=== PATIENT | male | born 1955 | race African-American/Black ===

== ENCOUNTER 2020-10-04 08:52 | Inpatient (IN) ==
[2020-10-04] MEDS ORDERED: CEFUROXIME INJ 1,500 MG in SYRINGE 1 EACH IV ONE (08:57)
[2020-10-04] MEDS ORDERED: DEXTROSE 50% 25 GM/50 ML VIAL IV PRN ×2 (08:57)
[2020-10-04] MEDS ORDERED: GLUCAGON 1 MG VIAL IM PRN ×2 (08:57)
[2020-10-04] MEDS ORDERED: CHLORHEXIDINE 0.12% ORAL RINSE 60 ML BOTTLE SWISH/SPIT SCH (09:00)
[2020-10-04] MEDS ORDERED: CHLORHEXIDINE 4% SOLN 118 ML BOTTLE TOP SCH (09:00)
[2020-10-04 09:30] LABS: Basophils % 0.4 % (0.0-0.8); Eosinophils # 0.2 10*3/uL (0.0-0.87); Eosinophils % 1.8 % (0.00-10.9); Hematocrit 41.9 VOL% (42.0-52.0); Hemoglobin 14.1 GM/DL (14.0-18.0); Immature Granulocytes % 0.4 %; Immature Granulocytes Absolute 0.03 #; Lymphocytes # 2.7 10*3/uL (1.4-4.0); Lymphocytes % 32.1 % (21.2-54.2); Mean Corpuscular HGB Conc 33.7 GM/DL (32-36); Mean Corpuscular Volume 85.7 FL (87-102); Mean Platelet Volume 9.3 FL (9.6-12.0); Neutrophils % 58.3 % (38.7-73.9); Platelet Count 293 T/CUMM (130-400); Red Blood Count 4.89 MC/CUMM (3.8-5.5); Red Cell Distribution Width 12.5 % (9.3-17.3); White Blood Count 8.5 T/CUMM (4-12)
[2020-10-04 09:46] LABS: Alanine Aminotransferase 61 U/L (16-61); Albumin 3.9 G/DL (3.4-5.0); Alkaline Phosphatase 55 U/L (45-117); Aspartate Amino Transferase 29 U/L (0-37); Bilirubin,Total < 0.39 MG/DL (0.2-1.0); Blood Urea Nitrogen 23 MG/DL (7-18); Calcium 9.7 MG/DL (8.5-10.1); Estimated Glom Filtration Rate 90 ML/MIN; Glucose 233 MG/DL (74-106); Total Protein 8.5 G/DL (6.4-8.3)
[2020-10-04] MEDS: SODIUM CHLORIDE 0.9% 1,000 ML IV SCH (10:27)
[2020-10-04 10:36] LABS: ABG HCO3 25.2 MMOL/L (20-26); ABG PCO2 44.6 MM HG (35-48); ABG PH 7.381 (7.35-7.45); ABG PO2 86.9 MM HG (80-95)
[2020-10-04] MEDS ORDERED: hydrALAZINE 20 MG/1 ML VIAL IV PRN (13:22)
[2020-10-04] MEDS: INSULIN REGULAR 100 UNIT/ML SUBCUT SCH ×3 (13:27→20:24)
[2020-10-04] MEDS ORDERED: CLORAZEPATE 3.75 MG TABLET PO PRN (14:21)
[2020-10-04] MEDS ORDERED: NITROGLYCERIN SL 0.4 MG TABLET SL PRN (14:21)
[2020-10-04] MEDS ORDERED: MORPHINE 4 MG/1 ML VIAL IV PRN (14:22)
[2020-10-04] MEDS ORDERED: ZALEPLON 5 MG CAPSULE PO PRN (14:22)
[2020-10-04] MEDS ORDERED: CHLORHEXIDINE 0.12% ORAL RINSE 60 ML BOTTLE SWISH/SPIT ONE (15:00)
[2020-10-04] MEDS: CHLORHEXIDINE 4% SOLN 118 ML BOTTLE TOP SCH ×2 (15:33→20:25)
[2020-10-04] MEDS: CHLORHEXIDINE 0.12% ORAL RINSE 60 ML BOTTLE SWISH/SPIT SCH (20:24)
[2020-10-04] MEDS: carvediloL 3.125 MG TABLET PO SCH (20:24)
[2020-10-04] MEDS ORDERED: GABAPENTIN 300 MG CAPSULE PO SCH (21:00)
[2020-10-05] MEDS: CHLORHEXIDINE 4% SOLN 118 ML BOTTLE TOP SCH ×2 (04:17→08:26)
[2020-10-05] MEDS ORDERED: VANCOMYCIN 500 MG VIAL ONE (04:21)
[2020-10-05] MEDS ORDERED: PAPAVERINE 60 MG/2 ML VIAL ONE (04:21)
[2020-10-05] MEDS ORDERED: VANCOMYCIN 1,000 MG VIAL ONE (04:21)
[2020-10-05] MEDS ORDERED: FAMOTIDINE 20 MG TABLET PO ONE (05:00)
[2020-10-05] MEDS ORDERED: DIAZEPAM 5 MG TABLET PO ONE (05:00)
[2020-10-05] MEDS ORDERED: LIDOCAINE 2% 5 ML VIAL ONE ×2 (05:49→09:55)
[2020-10-05] MEDS ORDERED: CALCIUM CHLORIDE 1,000 MG/10 ML VIAL IV ONE ×2 (05:51→10:10)
[2020-10-05] MEDS ORDERED: VECURONIUM 10 MG VIAL IV ONE ×4 (05:52)
[2020-10-05] MEDS ORDERED: SUFentanil 250 MCG/5 ML AMP ONE ×3 (05:53→07:46)
[2020-10-05] MEDS ORDERED: MIDAZOLAM 10 MG/2 ML VIAL ONE ×5 (05:53→07:46)
[2020-10-05] MEDS ORDERED: ETOMIDATE 40 MG/20 ML VIAL IV ONE (05:54)
[2020-10-05] MEDS ORDERED: AMINOCAPROIC ACID 5,000 MG/20 ML VIAL ONE ×4 (05:55)
[2020-10-05] MEDS ORDERED: SODIUM CHLORIDE 0.9% 1,000 ML IV ONE (05:59)
[2020-10-05] MEDS ORDERED: SODIUM CHLORIDE 0.9% 250 ML IV ONE (05:59)
[2020-10-05] MEDS ORDERED: LACTATED RINGERS 1,000 ML IV ONE (05:59)
[2020-10-05] MEDS ORDERED: CEFUROXIME INJ 1,500 MG in SYRINGE 1 EACH IV ONE (07:00)
[2020-10-05 07:28] LABS: ABG Base Excess 1.1 MMOL/L (-2.5-2.5); ABG HCO3 25.4 MMOL/L (20-26); ABG Oxygen Saturation 99.4 % (95-100); ABG PCO2 35.8 MM HG (35-48); ABG PH 7.447 (7.35-7.45); ABG TCO2 21.6 MMOL/L (23-27); Glucose Heart Surgery 161 MG/DL (74-106); Hematocrit Heart Surgery 38.7 PERCENT (42-52); Hemoglobin Heart Surgery 12.6 G/DL (14.0-18.0); Ionized Calcium Arterial 1.21 MMOL/L (1.21-1.46); PCO2 Patient Temp Arterial 35.8 MMHG; PH Patient Temp Arterial 7.447; Patient Temperature 37 CELCIUS; Potassium Heart/CVR 4.2 MMOL/L (3.5-5.1); Sodium Heart/CVR 140 MMOL/L (135-145)
[2020-10-05] MEDS ORDERED: NITROPRUSSIDE 50 MG/2 ML VIAL ONE (07:50)
[2020-10-05] MEDS ORDERED: PHENYLEPHRINE DRIP 40 MG/250 ML PREMIX IV ONE (07:51)
[2020-10-05] MEDS ORDERED: ALBUMIN 5% 12.5 GM/250 ML VIAL IV ONE (07:51)
[2020-10-05] MEDS ORDERED: POTASSIUM CHLORIDE RIDER 100 ML IV ONE (07:51)
[2020-10-05] MEDS ORDERED: CALCIUM CHLORIDE 1,000 MG/10 ML SYRINGE IV ONE (07:51)
[2020-10-05 08:07] LABS: Bacteria,Urine Occasional /HPF (Few); Bilirubin,Urine Negative (Negative); Blood, Urine Moderate mg/dL (Negative); Glucose,Urine (UA) Negative (Negative); Hyaline Casts,Urine 1 /LPF (0-3); Ketones,Urine Negative (Negative); Mucus,Urine Occasional /LPF (Occasional); Nitrite,Urine Negative (Negative); Protein,Urine 100 MG/DL; RBC,Urine 16 /HPF (0-4); Squamous Epithelial Cell,Urine Occasional /HPF (0-10); Urine Appearance Slightly Hazy (Clear); Urine Color Yellow (Yellow); Urine Specific Gravity 1.014 (1.001-1.035); Urine Urobilinogen < 2.0 EU/DL (0.2-1.0); WBC,Urine 10 /HPF (0-6)
[2020-10-05] MEDS: SODIUM CHLORIDE 0.9% 1,000 ML IV SCH (08:26)
[2020-10-05] MEDS: carvediloL 3.125 MG TABLET PO SCH (08:26)
[2020-10-05] MEDS: CHLORHEXIDINE 0.12% ORAL RINSE 60 ML BOTTLE SWISH/SPIT SCH (08:26)
[2020-10-05] MEDS: INSULIN REGULAR 100 UNIT/ML SUBCUT SCH (08:26)
[2020-10-05 08:52] LABS: Hematocrit Heart Surgery 28.2 PERCENT (42-52); Hemoglobin Heart Surgery 9.1 G/DL (14.0-18.0); PCO2 Patient Temp Venous 40.4 MM HG; PH Patient Temp Venous 7.427; Potassium Heart/CVR 4.8 MMOL/L (3.5-5.1); VBG Base Excess 2.2 MEQ/L (0-4); VBG Oxygen Saturation 75.6 %; VBG PCO2 40.4 MMHG (41-51); VBG PH 7.427
[2020-10-05] MEDS ORDERED: PHENYLEPHRINE DRIP 20 MG/250 ML PREMIX IV ONE (09:13)
[2020-10-05] MEDS ORDERED: NITROGLYCERIN DRIP 50 MG/250 ML BOTTLE IV ONE (09:13)
[2020-10-05] MEDS ORDERED: HEPARIN/NACL 0.9% 2 UNITS/ML 500 ML IV ONE (09:13)
[2020-10-05 09:36] LABS: Hematocrit Heart Surgery 31.3 PERCENT (42-52); Hemoglobin Heart Surgery 10.1 G/DL (14.0-18.0); PCO2 Patient Temp Venous 38.8 MM HG; PH Patient Temp Venous 7.433; PO2 Patient Temp Venous 37.1 MM HG; Potassium Heart/CVR 5.5 MMOL/L (3.5-5.1); VBG Base Excess 1.7 MEQ/L (0-4); VBG HCO3 25.5 MEQ/L (24-28); VBG Oxygen Saturation 69.2 %; VBG PCO2 38.8 MMHG (41-51); VBG PH 7.433; VBG PO2 37.1 MMHG (17-40)
[2020-10-05] MEDS ORDERED: MAGNESIUM SULFATE 5 GM/10 ML VIAL IV ONE (09:55)
[2020-10-05] MEDS ORDERED: DEXTROSE 5% KCL 20 MEQ 20 MEQ/1,000 ML BAG IV ONE (09:55)
[2020-10-05] MEDS ORDERED: methylPREDNISolone SOD SUC 1,000 MG/8 ML VIAL ONE (09:55)
[2020-10-05] MEDS ORDERED: MANNITOL 100 GM/500 ML BAG IV ONE (09:55)
[2020-10-05] MEDS ORDERED: ALBUMIN 25% 25 GM/100 ML VIAL IV ONE (09:55)
[2020-10-05] MEDS ORDERED: PROTAMINE SULFATE 50 MG/5 ML VIAL IV ONE ×4 (09:56→10:45)
[2020-10-05] MEDS ORDERED: PROTAMINE SULFATE 250 MG/25 ML VIAL IV ONE (09:56)
[2020-10-05] MEDS ORDERED: FUROSEMIDE 20 MG/2 ML VIAL ONE (09:56)
[2020-10-05] MEDS ORDERED: SODIUM BICARBONATE 50 MEQ/50 ML VIAL IV ONE (09:56)
[2020-10-05] MEDS ORDERED: HEPARIN 10,000 UNIT/10 ML VIAL ONE (09:56)
[2020-10-05 10:02] LABS: ABG Base Excess 0.3 MMOL/L (-2.5-2.5); ABG HCO3 24.7 MMOL/L (20-26); ABG Oxygen Saturation 99.6 % (95-100); ABG PCO2 37.2 MM HG (35-48); ABG PH 7.426 (7.35-7.45); ABG TCO2 22.1 MMOL/L (23-27); Glucose Heart Surgery 224 MG/DL (74-106); Hematocrit Heart Surgery 31.7 PERCENT (42-52); Hemoglobin Heart Surgery 10.2 G/DL (14.0-18.0); Ionized Calcium Arterial 1.27 MMOL/L (1.21-1.46); PCO2 Patient Temp Arterial 37.2 MMHG; PH Patient Temp Arterial 7.426; Patient Temperature 37 CELCIUS; Potassium Heart/CVR 4.6 MMOL/L (3.5-5.1); Sodium Heart/CVR 135 MMOL/L (135-145)
[2020-10-05] MEDS ORDERED: LACTATED RINGERS 250 ML IV PRN (10:36)
[2020-10-05] MEDS ORDERED: VECURONIUM 10 MG VIAL IV PRN ×2 (10:36)
[2020-10-05] MEDS ORDERED: PHENYLEPHRINE DRIP 40 MG/250 ML PREMIX IV PRN (10:36)
[2020-10-05] MEDS ORDERED: MAGNESIUM SULF RIDER 4 GM in PREMIX 1 EACH IV PRN (10:36)
[2020-10-05] MEDS ORDERED: INSULIN REGULAR 100 UNIT/ML IV ONE (10:36)
[2020-10-05] MEDS ORDERED: MAGNESIUM SULF RIDER 2 GM in PREMIX 1 EACH IV PRN (10:36)
[2020-10-05] MEDS ORDERED: NITROPRUSSIDE 100 MG in DEXTROSE 5% 250 ML IV PRN (10:36)
[2020-10-05] MEDS ORDERED: ONDANSETRON 4 MG/2 ML VIAL IV PRN (10:36)
[2020-10-05] MEDS ORDERED: ACETAMINOPHEN 650 MG SUPP RECTAL PRN (10:36)
[2020-10-05] MEDS ORDERED: CALCIUM CHLORIDE 1,000 MG/10 ML SYRINGE IV PRN (10:36)
[2020-10-05] MEDS ORDERED: MIDAZOLAM 10 MG/2 ML VIAL IV PRN (10:36)
[2020-10-05] MEDS ORDERED: DEXTROSE 50% 25 GM/50 ML VIAL IV PRN ×2 (10:36)
[2020-10-05] MEDS ORDERED: MORPHINE 10 MG/1 ML VIAL IV PRN (10:36)
[2020-10-05] MEDS ORDERED: MIDAZOLAM 2 MG/2 ML VIAL IV PRN (10:36)
[2020-10-05] MEDS ORDERED: CHLORHEXIDINE 4% SOLN 118 ML BOTTLE TOP PRN (10:36)
[2020-10-05] MEDS ORDERED: INSULIN REGULAR 100 UNIT/ML IV PRN (10:36)
[2020-10-05] MEDS: LACTATED RINGERS 1,000 ML IV PRN ×3 (10:50→14:00)
[2020-10-05] MEDS ORDERED: SODIUM CHLORIDE 0.45% 1,000 ML IV SCH ×2 (11:00)
[2020-10-05] MEDS: ALBUMIN 5% 12.5 GM in PREMIX 1 EACH IV PRN ×3 (11:15→15:55)
[2020-10-05 11:19] LABS: ABG HCO3 24.4 MMOL/L (20-26); ABG Oxygen Saturation 99.4 % (95-100); ABG PCO2 31.1 MM HG (35-48); ABG PH 7.474 (7.35-7.45); ABG TCO2 20.5 MMOL/L (23-27); Glucose Heart Surgery 202 MG/DL (74-106); Hematocrit Heart Surgery 33.2 PERCENT (42-52); Hemoglobin Heart Surgery 10.8 G/DL (14.0-18.0); Potassium Heart/CVR 4.2 MMOL/L (3.5-5.1)
[2020-10-05 11:24] LABS: Basophils % 0.2 % (0.0-0.8); Eosinophils # 0.1 10*3/uL (0.0-0.87); Eosinophils % 0.8 % (0.00-10.9); Hematocrit 30.9 VOL% (42.0-52.0); Hemoglobin 10.6 GM/DL (14.0-18.0); Immature Granulocytes % 0.5 %; Immature Granulocytes Absolute 0.06 #; Lymphocytes # 2.3 10*3/uL (1.4-4.0); Lymphocytes % 18.7 % (21.2-54.2); Mean Corpuscular HGB Conc 34.3 GM/DL (32-36); Mean Corpuscular Volume 85.6 FL (87-102); Mean Platelet Volume 9.6 FL (9.6-12.0); Monocytes % 5.9 % (1.7-12.7); Neutrophils % 73.9 % (38.7-73.9); Platelet Count 226 T/CUMM (130-400); Red Blood Count 3.61 MC/CUMM (3.8-5.5); Red Cell Distribution Width 12.4 % (9.3-17.3); White Blood Count 12.1 T/CUMM (4-12)
[2020-10-05] MEDS ORDERED: INSULIN REGULAR DRIP 100 ML IV SCH (11:30)
[2020-10-05 11:35] LABS: INR 1.2; PT Patient Result 12.4 SECS (9.8-11.9); Partial Thromboplastin Time 29.9 SECS (23.9-33.8)
[2020-10-05 11:47] LABS: Albumin 3.1 G/DL (3.4-5.0); Bilirubin,Total 1.4 MG/DL (0.2-1.0); Calcium 9.3 MG/DL (8.5-10.1); Osmolality,Calculated 285.5 MOS/KG (273-304); Total Protein 6.2 G/DL (6.4-8.3)
[2020-10-05 11:49] LABS: CKMB % 5.5 %
[2020-10-05 11:54] LABS: Troponin I 3.3 NG/ML (0.00-0.045)
[2020-10-05 12:12] LABS: ABG Base Excess 0.1 MMOL/L (-2.5-2.5); ABG HCO3 24.5 MMOL/L (20-26); ABG Oxygen Saturation 99.2 % (95-100); ABG PCO2 31.4 MM HG (35-48); ABG PH 7.473 (7.35-7.45); ABG TCO2 20.6 MMOL/L (23-27); Glucose Heart Surgery 205 MG/DL (74-106); Hematocrit Heart Surgery 33.7 PERCENT (42-52); Hemoglobin Heart Surgery 10.9 G/DL (14.0-18.0); Potassium Heart/CVR 3.8 MMOL/L (3.5-5.1)
[2020-10-05] MEDS: POTASSIUM CHLORIDE RIDER 20 MEQ in PREMIX 1 EACH IV PRN ×4 (12:32→18:16)
[2020-10-05] MEDS: POTASSIUM CHLORIDE RIDER 10 MEQ in PREMIX 1 EACH IV PRN ×2 (13:15→17:13)
[2020-10-05 13:58] LABS: ABG Base Excess -0.2 MMOL/L (-2.5-2.5); ABG HCO3 24.3 MMOL/L (20-26); ABG Oxygen Saturation 98.9 % (95-100); ABG PCO2 33.5 MM HG (35-48); ABG PH 7.449 (7.35-7.45); ABG TCO2 20.8 MMOL/L (23-27); Glucose Heart Surgery 170 MG/DL (74-106); Hematocrit Heart Surgery 33.6 PERCENT (42-52); Hemoglobin Heart Surgery 10.9 G/DL (14.0-18.0)
[2020-10-05] MEDS ORDERED: DEXMEDETOMIDINE 400 MCG in SODIUM CHLORIDE 0.9% 96 ML IV PRN (15:29)
[2020-10-05] MEDS ORDERED: MEPERIDINE 50 MG/1 ML VIAL IV PRN (15:29)
[2020-10-05 16:24] LABS: ABG Base Excess -0.4 MMOL/L (-2.5-2.5); ABG HCO3 24.1 MMOL/L (20-26); ABG Oxygen Saturation 98.9 % (95-100); ABG PCO2 33.8 MM HG (35-48); ABG PH 7.443 (7.35-7.45); ABG TCO2 20.8 MMOL/L (23-27); Glucose Heart Surgery 158 MG/DL (74-106); Hematocrit Heart Surgery 33.1 PERCENT (42-52); Hemoglobin Heart Surgery 10.7 G/DL (14.0-18.0); Potassium Heart/CVR 3.9 MMOL/L (3.5-5.1)
[2020-10-05] MEDS: CEFUROXIME INJ 1,500 MG in SYRINGE 1 EACH IV SCH (17:37)
[2020-10-05 18:05] LABS: ABG Base Excess 0.1 MMOL/L (-2.5-2.5); ABG HCO3 22.6 MMOL/L (20-26); ABG Oxygen Saturation 97.8 % (95-100); ABG PCO2 29.4 MM HG (35-48); ABG PH 7.504 (7.35-7.45); ABG PO2 157.1 MM HG (80-95); ABG TCO2 23.5 MMOL/L (23-27); Glucose Heart Surgery 135 MG/DL (74-106)
[2020-10-05] MEDS ORDERED: FUROSEMIDE 40 MG/4 ML VIAL IV PRN (18:20)
[2020-10-05 18:30] LABS: CKMB % 4.5 %
[2020-10-05 18:39] LABS: Troponin I 7.82 NG/ML (0.00-0.045)
[2020-10-05] MEDS: MORPHINE 4 MG/1 ML VIAL IV PRN (19:49)
[2020-10-05 19:57] LABS: ABG Base Excess -0.5 MMOL/L (-2.5-2.5); ABG Oxygen Saturation 98.8 % (95-100); ABG PCO2 35.2 MM HG (35-48); ABG TCO2 21.1 MMOL/L (23-27); Glucose Heart Surgery 131 MG/DL (74-106); Hemoglobin Heart Surgery 10.3 G/DL (14.0-18.0); Potassium Heart/CVR 4.6 MMOL/L (3.5-5.1)
[2020-10-05] MEDS ORDERED: KETOROLAC 30 MG/1 ML VIAL IV ONE (19:57)
[2020-10-05] MEDS ORDERED: CHLORHEXIDINE 0.12% ORAL RINSE 60 ML BOTTLE SWISH/SPIT SCH (21:00)
[2020-10-05 21:07] LABS: ABG Base Excess -1.1 MMOL/L (-2.5-2.5); ABG HCO3 24.6 MMOL/L (20-26); ABG Oxygen Saturation 97.5 % (95-100); ABG PCO2 45.2 MM HG (35-48); ABG PH 7.353 (7.35-7.45); ABG PO2 135.4 MM HG (80-95); Glucose Heart Surgery 121 MG/DL (74-106); Hemoglobin Heart Surgery 10.3 G/DL (14.0-18.0); Potassium Heart/CVR 4.5 MMOL/L (3.5-5.1)
[2020-10-05 22:42] LABS: ABG Base Excess -1.8 MMOL/L (-2.5-2.5); ABG HCO3 22.9 MMOL/L (20-26); ABG Oxygen Saturation 97.8 % (95-100); ABG PH 7.306 (7.35-7.45); Glucose Heart Surgery 116 MG/DL (74-106); Hematocrit Heart Surgery 30.1 PERCENT (42-52); Hemoglobin Heart Surgery 9.7 G/DL (14.0-18.0); Potassium Heart/CVR 4.7 MMOL/L (3.5-5.1)
[2020-10-06 04:26] LABS: Basophils % 0.1 % (0.0-0.8); Hematocrit 28.9 VOL% (42.0-52.0); Hemoglobin 9.9 GM/DL (14.0-18.0); Immature Granulocytes % 0.6 %; Lymphocytes # 1.3 10*3/uL (1.4-4.0); Mean Corpuscular HGB Conc 34.3 GM/DL (32-36); Mean Corpuscular Volume 87.8 FL (87-102); Mean Platelet Volume 9.9 FL (9.6-12.0); Monocytes % 5.6 % (1.7-12.7); Neutrophils % 85.7 % (38.7-73.9); Platelet Count 204 T/CUMM (130-400); Red Blood Count 3.29 MC/CUMM (3.8-5.5); Red Cell Distribution Width 12.6 % (9.3-17.3); White Blood Count 16.5 T/CUMM (4-12)
[2020-10-06 04:27] LABS: ABG HCO3 23.6 MMOL/L (20-26); ABG Oxygen Saturation 98.1 % (95-100); ABG PCO2 49.8 MM HG (35-48); ABG PH 7.318 (7.35-7.45); ABG TCO2 23.6 MMOL/L (23-27); Glucose Heart Surgery 113 MG/DL (74-106); Hematocrit Heart Surgery 29.8 PERCENT (42-52); Hemoglobin Heart Surgery 9.6 G/DL (14.0-18.0); Potassium Heart/CVR 4.9 MMOL/L (3.5-5.1)
[2020-10-06 05:04] LABS: CKMB % 3.5 %
[2020-10-06 05:17] LABS: Troponin I 4.64 NG/ML (0.00-0.045)
[2020-10-06] MEDS: INSULIN REGULAR 100 UNIT/ML SUBCUT SCH ×6 (05:21→20:19)
[2020-10-06] MEDS: MORPHINE 4 MG/1 ML VIAL IV PRN ×2 (05:43→07:45)
[2020-10-06] MEDS: CEFUROXIME INJ 1,500 MG in SYRINGE 1 EACH IV SCH ×2 (05:55→17:48)
[2020-10-06 06:29] LABS: Albumin 3.5 G/DL (3.4-5.0); Bilirubin,Direct 0.12 MG/DL (0.0-0.20); Bilirubin,Total 0.8 MG/DL (0.2-1.0); Calcium 8.7 MG/DL (8.5-10.1); Osmolality,Calculated 283.4 MOS/KG (273-304); Total Protein 6.6 G/DL (6.4-8.3)
[2020-10-06] MEDS ORDERED: GLUCAGON 1 MG VIAL IM PRN (08:22)
[2020-10-06] MEDS ORDERED: MAGNESIUM HYDROXIDE SUSP 30 ML UDCUP PO PRN (08:22)
[2020-10-06] MEDS ORDERED: DEXTROSE 50% 25 GM/50 ML VIAL IV PRN (08:22)
[2020-10-06] MEDS ORDERED: ACETAMINOPHEN 325 MG TABLET PO PRN (08:22)
[2020-10-06] MEDS ORDERED: ONDANSETRON 4 MG/2 ML VIAL IV PRN (08:22)
[2020-10-06] MEDS ORDERED: MAGNESIUM SULF RIDER 4 GM in PREMIX 1 EACH IV PRN (08:22)
[2020-10-06] MEDS ORDERED: POTASSIUM CHLORIDE 20 MEQ TABLET PO PRN (08:22)
[2020-10-06] MEDS ORDERED: MAGNESIUM SULF RIDER 2 GM in PREMIX 1 EACH IV PRN (08:22)
[2020-10-06] MEDS ORDERED: ALUMINUM/MAGNES/SIMETH MAX STR 30 ML UDCUP PO PRN (08:22)
[2020-10-06] MEDS: CHLORHEXIDINE 0.12% ORAL RINSE 60 ML BOTTLE SWISH/SPIT SCH ×2 (08:40→20:24)
[2020-10-06] MEDS: PANTOPRAZOLE 40 MG TABLET PO SCH (08:40)
[2020-10-06] MEDS: FERROUS SULFATE 325 MG TABLET PO SCH (08:40)
[2020-10-06] MEDS: DOCUSATE SODIUM 100 MG CAPSULE PO SCH (08:40)
[2020-10-06] MEDS: SODIUM CHLOR 0.45% KCL 20 MEQ 20 MEQ/1,000 ML BAG IV SCH (08:40)
[2020-10-06] MEDS: carvediloL 3.125 MG TABLET PO SCH ×2 (08:40→20:21)
[2020-10-06] MEDS: ASPIRIN EC 325 MG TABLET PO SCH (08:40)
[2020-10-06 11:01] LABS: CKMB % 2.5 %
[2020-10-06 11:18] LABS: Troponin I 3.21 NG/ML (0.00-0.045)
[2020-10-06] MEDS: oxyCODONE/ACETAMINOPHEN 5-325 MG TABLET PO PRN ×2 (11:37→17:03)
[2020-10-06] MEDS ORDERED: KETOROLAC 30 MG/1 ML VIAL IV ONE (18:19)
[2020-10-06] MEDS ORDERED: HYDROmorphone 2 MG/1 ML VIAL IV PRN (18:22)
[2020-10-06] MEDS: GABAPENTIN 600 MG TABLET PO SCH (20:19)
[2020-10-06] MEDS: SIMVASTATIN 20 MG TABLET PO SCH (20:19)
[2020-10-07] MEDS: KETOROLAC 30 MG/1 ML VIAL IV SCH ×4 (00:12→18:23)
[2020-10-07] MEDS ORDERED: FUROSEMIDE 40 MG/4 ML VIAL IV ONE (06:00)
[2020-10-07 06:56] LABS: Albumin 3.1 G/DL (3.4-5.0); Bilirubin,Direct 0.13 MG/DL (0.0-0.20); Bilirubin,Total 0.6 MG/DL (0.2-1.0); Calcium 8.5 MG/DL (8.5-10.1); Osmolality,Calculated 282.8 MOS/KG (273-304); Total Protein 6.7 G/DL (6.4-8.3)
[2020-10-07 07:00] LABS: Alanine Aminotransferase 76 U/L (16-61); Albumin 3.2 G/DL (3.4-5.0); Alkaline Phosphatase 47 U/L (45-117); Aspartate Amino Transferase 22 U/L (0-37); Bilirubin,Indirect 0.5 MG/DL (0.0-1.0); Total Protein 6.7 G/DL (6.4-8.3)
[2020-10-07 08:27] LABS: Basophils % 0.2 % (0.0-0.8); Eosinophils # 0.1 10*3/uL (0.0-0.87); Eosinophils % 0.5 % (0.00-10.9); Hematocrit 31.1 VOL% (42.0-52.0); Hemoglobin 10.2 GM/DL (14.0-18.0); Immature Granulocytes % 0.5 %; Immature Granulocytes Absolute 0.06 #; Lymphocytes # 1.9 10*3/uL (1.4-4.0); Mean Corpuscular HGB Conc 32.8 GM/DL (32-36); Mean Corpuscular Volume 90.1 FL (87-102); Mean Platelet Volume 10.1 FL (9.6-12.0); Monocytes % 8.7 % (1.7-12.7); Neutrophils % 76.1 % (38.7-73.9); Platelet Count 215 T/CUMM (130-400); Red Blood Count 3.45 MC/CUMM (3.8-5.5); Red Cell Distribution Width 13.2 % (9.3-17.3); White Blood Count 13.3 T/CUMM (4-12)
[2020-10-07] MEDS: DOCUSATE SODIUM 100 MG CAPSULE PO SCH (09:59)
[2020-10-07] MEDS: PANTOPRAZOLE 40 MG TABLET PO SCH (09:59)
[2020-10-07] MEDS: carvediloL 3.125 MG TABLET PO SCH ×2 (09:59→21:22)
[2020-10-07] MEDS: FERROUS SULFATE 325 MG TABLET PO SCH (09:59)
[2020-10-07] MEDS: CHLORHEXIDINE 0.12% ORAL RINSE 60 ML BOTTLE SWISH/SPIT SCH ×2 (09:59→21:23)
[2020-10-07] MEDS: ASPIRIN EC 325 MG TABLET PO SCH (09:59)
[2020-10-07] MEDS: INSULIN REGULAR 100 UNIT/ML SUBCUT SCH ×4 (10:02→21:21)
[2020-10-07] MEDS ORDERED: LIDOCAINE 1%/EPI INJ 20 ML VIAL MISC INJ ONE (11:29)
[2020-10-07] MEDS ORDERED: MORPHINE 4 MG/1 ML VIAL IV ONE (11:41)
[2020-10-07] MEDS ORDERED: LIDOCAINE MPF 1% /EPI 30 ML VIAL MISC INJ ONE (12:00)
[2020-10-07] MEDS: SODIUM CHLOR 0.45% KCL 20 MEQ 20 MEQ/1,000 ML BAG IV SCH (12:34)
[2020-10-07] MEDS: GABAPENTIN 600 MG TABLET PO SCH (21:21)
[2020-10-07] MEDS: SIMVASTATIN 20 MG TABLET PO SCH (21:22)
[2020-10-08] MEDS: KETOROLAC 30 MG/1 ML VIAL IV SCH ×4 (01:22→18:27)
[2020-10-08 06:12] LABS: Basophils % 0.2 % (0.0-0.8); Eosinophils # 0.2 10*3/uL (0.0-0.87); Hematocrit 28.6 VOL% (42.0-52.0); Hemoglobin 9.4 GM/DL (14.0-18.0); Immature Granulocytes % 0.5 %; Immature Granulocytes Absolute 0.05 #; Lymphocytes # 2.6 10*3/uL (1.4-4.0); Lymphocytes % 23.4 % (21.2-54.2); Mean Corpuscular HGB Conc 32.9 GM/DL (32-36); Mean Corpuscular Volume 89.9 FL (87-102); Mean Platelet Volume 9.9 FL (9.6-12.0); Neutrophils % 64.9 % (38.7-73.9); Platelet Count 213 T/CUMM (130-400); Red Blood Count 3.18 MC/CUMM (3.8-5.5)
[2020-10-08 06:26] LABS: Alanine Aminotransferase 61 U/L (16-61); Albumin 2.8 G/DL (3.4-5.0); Alkaline Phosphatase 45 U/L (45-117); Aspartate Amino Transferase 12 U/L (0-37); Bilirubin,Indirect 0.4 MG/DL (0.0-1.0); Total Protein 6.5 G/DL (6.4-8.3)
[2020-10-08 06:30] LABS: Albumin 2.8 G/DL (3.4-5.0); Bilirubin,Direct 0.14 MG/DL (0.0-0.20); Bilirubin,Total 0.8 MG/DL (0.2-1.0); Calcium 8.5 MG/DL (8.5-10.1); Osmolality,Calculated 285.5 MOS/KG (273-304); Total Protein 6.4 G/DL (6.4-8.3)
[2020-10-08 06:32] LABS: Troponin I 0.683 NG/ML (0.00-0.045)
[2020-10-08] MEDS: DOCUSATE SODIUM 100 MG CAPSULE PO SCH (09:00)
[2020-10-08] MEDS: carvediloL 3.125 MG TABLET PO SCH ×2 (09:00→22:14)
[2020-10-08] MEDS: ASPIRIN EC 325 MG TABLET PO SCH (09:00)
[2020-10-08] MEDS: PANTOPRAZOLE 40 MG TABLET PO SCH (09:00)
[2020-10-08] MEDS: CHLORHEXIDINE 0.12% ORAL RINSE 60 ML BOTTLE SWISH/SPIT SCH ×2 (09:00→22:14)
[2020-10-08] MEDS: FERROUS SULFATE 325 MG TABLET PO SCH (09:00)
[2020-10-08] MEDS: INSULIN REGULAR 100 UNIT/ML SUBCUT SCH ×4 (09:01→22:13)
[2020-10-08] MEDS: GABAPENTIN 600 MG TABLET PO SCH (22:13)
[2020-10-08] MEDS: SIMVASTATIN 20 MG TABLET PO SCH (22:14)
[2020-10-09] MEDS: KETOROLAC 30 MG/1 ML VIAL IV SCH ×4 (01:25→17:41)
[2020-10-09 06:17] LABS: Calcium 8.5 MG/DL (8.5-10.1); Osmolality,Calculated 289.3 MOS/KG (273-304)
[2020-10-09 06:43] LABS: Basophils % 0.4 % (0.0-0.8); Eosinophils # 0.3 10*3/uL (0.0-0.87); Eosinophils % 3.2 % (0.00-10.9); Hematocrit 28.6 VOL% (42.0-52.0); Hemoglobin 9.3 GM/DL (14.0-18.0); Immature Granulocytes % 0.3 %; Immature Granulocytes Absolute 0.03 #; Lymphocytes # 2.8 10*3/uL (1.4-4.0); Mean Corpuscular HGB Conc 32.5 GM/DL (32-36); Mean Corpuscular Volume 91.1 FL (87-102); Mean Platelet Volume 10.2 FL (9.6-12.0); Neutrophils % 58.1 % (38.7-73.9); Platelet Count 239 T/CUMM (130-400); Red Blood Count 3.14 MC/CUMM (3.8-5.5); Red Cell Distribution Width 12.9 % (9.3-17.3); White Blood Count 9.7 T/CUMM (4-12)
[2020-10-09] MEDS: INSULIN REGULAR 100 UNIT/ML SUBCUT SCH ×4 (08:45→21:37)
[2020-10-09] MEDS: PANTOPRAZOLE 40 MG TABLET PO SCH (08:51)
[2020-10-09] MEDS: carvediloL 3.125 MG TABLET PO SCH (08:51)
[2020-10-09] MEDS: DOCUSATE SODIUM 100 MG CAPSULE PO SCH (08:51)
[2020-10-09] MEDS: ASPIRIN EC 325 MG TABLET PO SCH (08:51)
[2020-10-09] MEDS: FERROUS SULFATE 325 MG TABLET PO SCH (08:51)
[2020-10-09] MEDS: CHLORHEXIDINE 0.12% ORAL RINSE 60 ML BOTTLE SWISH/SPIT SCH ×2 (08:52→21:37)
[2020-10-09] MEDS: GABAPENTIN 600 MG TABLET PO SCH (21:24)
[2020-10-09] MEDS: ZALEPLON 5 MG CAPSULE PO PRN (21:25)
[2020-10-09] MEDS: carvediloL 6.25 MG TABLET PO SCH (21:25)
[2020-10-09] MEDS: SIMVASTATIN 20 MG TABLET PO SCH (21:26)
[2020-10-09] MEDS: TAMSULOSIN 0.4 MG CAPSULE PO SCH (21:26)
[2020-10-10 06:27] LABS: Basophils % 0.3 % (0.0-0.8); Eosinophils # 0.4 10*3/uL (0.0-0.87); Eosinophils % 4.1 % (0.00-10.9); Hematocrit 27.3 VOL% (42.0-52.0); Hemoglobin 8.8 GM/DL (14.0-18.0); Immature Granulocytes % 0.4 %; Immature Granulocytes Absolute 0.04 #; Lymphocytes # 2.5 10*3/uL (1.4-4.0); Mean Corpuscular HGB Conc 32.2 GM/DL (32-36); Mean Platelet Volume 10.1 FL (9.6-12.0); Monocytes % 8.1 % (1.7-12.7); Neutrophils % 62.1 % (38.7-73.9); Platelet Count 259 T/CUMM (130-400); Red Cell Distribution Width 12.7 % (9.3-17.3); White Blood Count 10.1 T/CUMM (4-12)
[2020-10-10 06:53] LABS: Calcium 8.1 MG/DL (8.5-10.1); Osmolality,Calculated 287.4 MOS/KG (273-304)
[2020-10-10 06:57] LABS: Alanine Aminotransferase 45 U/L (16-61); Albumin 2.5 G/DL (3.4-5.0); Alkaline Phosphatase 49 U/L (45-117); Aspartate Amino Transferase 18 U/L (0-37); Bilirubin,Indirect 0.5 MG/DL (0.0-1.0); Blood Urea Nitrogen 29 MG/DL (7-18); Calcium 8.3 MG/DL (8.5-10.1); Estimated Glom Filtration Rate 114 ML/MIN; Glucose 159 MG/DL (74-106); Osmolality,Calculated 289.3 MOS/KG (273-304); Total Protein 6.6 G/DL (6.4-8.3)
[2020-10-10 06:58] LABS: Troponin I 0.227 NG/ML (0.00-0.045)
[2020-10-10] MEDS: PHENAZOPYRIDINE 95 MG TABLET PO SCH ×2 (09:04→17:08)
[2020-10-10] MEDS: carvediloL 6.25 MG TABLET PO SCH ×2 (09:04→21:18)
[2020-10-10] MEDS: ASPIRIN EC 325 MG TABLET PO SCH (09:04)
[2020-10-10] MEDS: DOCUSATE SODIUM 100 MG CAPSULE PO SCH (09:05)
[2020-10-10] MEDS: hydroCHLOROthiazide 25 MG TABLET PO SCH (09:05)
[2020-10-10] MEDS: FERROUS SULFATE 325 MG TABLET PO SCH (09:05)
[2020-10-10] MEDS: PANTOPRAZOLE 40 MG TABLET PO SCH (09:05)
[2020-10-10] MEDS: LOSARTAN 25 MG TABLET PO SCH (09:05)
[2020-10-10] MEDS: metFORMIN 500 MG TABLET PO SCH ×2 (09:05→21:18)
[2020-10-10] MEDS: CHLORHEXIDINE 0.12% ORAL RINSE 60 ML BOTTLE SWISH/SPIT SCH ×2 (09:06→21:19)
[2020-10-10] MEDS: INSULIN REGULAR 100 UNIT/ML SUBCUT SCH ×4 (09:09→21:17)
[2020-10-10] MEDS: oxyCODONE/ACETAMINOPHEN 5-325 MG TABLET PO PRN ×2 (12:20→21:18)
[2020-10-10] MEDS: SIMVASTATIN 20 MG TABLET PO SCH (21:18)
[2020-10-10] MEDS: TAMSULOSIN 0.4 MG CAPSULE PO SCH (21:18)
[2020-10-10] MEDS: ZALEPLON 5 MG CAPSULE PO PRN (21:18)
[2020-10-10] MEDS: GABAPENTIN 600 MG TABLET PO SCH (21:18)
[2020-10-11 06:01] LABS: Basophils % 0.4 % (0.0-0.8); Eosinophils # 0.3 10*3/uL (0.0-0.87); Hematocrit 27.9 VOL% (42.0-52.0); Hemoglobin 9.1 GM/DL (14.0-18.0); Immature Granulocytes % 0.6 %; Immature Granulocytes Absolute 0.06 #; Lymphocytes # 2.6 10*3/uL (1.4-4.0); Lymphocytes % 24.2 % (21.2-54.2); Mean Corpuscular HGB Conc 32.6 GM/DL (32-36); Mean Corpuscular Volume 90.3 FL (87-102); Mean Platelet Volume 9.4 FL (9.6-12.0); Monocytes % 8.6 % (1.7-12.7); Neutrophils % 63.2 % (38.7-73.9); Platelet Count 272 T/CUMM (130-400); Red Blood Count 3.09 MC/CUMM (3.8-5.5); Red Cell Distribution Width 12.9 % (9.3-17.3); White Blood Count 10.7 T/CUMM (4-12)
[2020-10-11 06:44] LABS: Alanine Aminotransferase 33 U/L (16-61); Albumin 2.7 G/DL (3.4-5.0); Alkaline Phosphatase 44 U/L (45-117); Aspartate Amino Transferase 19 U/L (0-37); Bilirubin,Direct < 0.100 MG/DL (0.0-0.20); Blood Urea Nitrogen 26 MG/DL (7-18); Calcium 8.3 MG/DL (8.5-10.1); Estimated Glom Filtration Rate 102 ML/MIN; Glucose 123 MG/DL (74-106); Osmolality,Calculated 278.8 MOS/KG (273-304); Total Protein 6.4 G/DL (6.4-8.3)
[2020-10-11 06:47] LABS: Bilirubin,Indirect 0.4 MG/DL (0.0-1.0)
[2020-10-11 06:48] LABS: Troponin I 0.141 NG/ML (0.00-0.045)
[2020-10-11] MEDS: PANTOPRAZOLE 40 MG TABLET PO SCH (09:06)
[2020-10-11] MEDS: hydroCHLOROthiazide 25 MG TABLET PO SCH (09:10)
[2020-10-11] MEDS: metFORMIN 500 MG TABLET PO SCH ×2 (09:13→21:26)
[2020-10-11] MEDS: PHENAZOPYRIDINE 95 MG TABLET PO SCH ×2 (09:14→17:35)
[2020-10-11] MEDS: LOSARTAN 25 MG TABLET PO SCH (09:14)
[2020-10-11] MEDS: DOCUSATE SODIUM 100 MG CAPSULE PO SCH (09:14)
[2020-10-11] MEDS: carvediloL 6.25 MG TABLET PO SCH ×2 (09:14→21:26)
[2020-10-11] MEDS: ASPIRIN EC 325 MG TABLET PO SCH (09:14)
[2020-10-11] MEDS: FERROUS SULFATE 325 MG TABLET PO SCH (09:14)
[2020-10-11] MEDS: INSULIN REGULAR 100 UNIT/ML SUBCUT SCH ×4 (09:15→22:52)
[2020-10-11] MEDS: CHLORHEXIDINE 0.12% ORAL RINSE 60 ML BOTTLE SWISH/SPIT SCH ×2 (09:15→21:26)
[2020-10-11] MEDS: oxyCODONE/ACETAMINOPHEN 5-325 MG TABLET PO PRN (21:25)
[2020-10-11] MEDS: GABAPENTIN 600 MG TABLET PO SCH (21:25)
[2020-10-11] MEDS: TAMSULOSIN 0.4 MG CAPSULE PO SCH (21:26)
[2020-10-11] MEDS: SIMVASTATIN 20 MG TABLET PO SCH (21:26)
[2020-10-12 05:42] LABS: Basophils % 0.2 % (0.0-0.8); Eosinophils # 0.3 10*3/uL (0.0-0.87); Eosinophils % 3.3 % (0.00-10.9); Hematocrit 27.9 VOL% (42.0-52.0); Hemoglobin 9.1 GM/DL (14.0-18.0); Immature Granulocytes % 0.4 %; Immature Granulocytes Absolute 0.04 #; Lymphocytes # 2.7 10*3/uL (1.4-4.0); Lymphocytes % 26.9 % (21.2-54.2); Mean Corpuscular HGB Conc 32.6 GM/DL (32-36); Mean Corpuscular Volume 91.2 FL (87-102); Mean Platelet Volume 9.9 FL (9.6-12.0); Monocytes % 8.3 % (1.7-12.7); Neutrophils % 60.9 % (38.7-73.9); Platelet Count 262 T/CUMM (130-400); Red Blood Count 3.06 MC/CUMM (3.8-5.5); Red Cell Distribution Width 12.8 % (9.3-17.3)
[2020-10-12 06:05] LABS: Calcium 8.3 MG/DL (8.5-10.1); Osmolality,Calculated 280.7 MOS/KG (273-304)
[2020-10-12] MEDS: PHENAZOPYRIDINE 95 MG TABLET PO SCH ×2 (08:48→17:18)
[2020-10-12] MEDS: FERROUS SULFATE 325 MG TABLET PO SCH (08:48)
[2020-10-12] MEDS: carvediloL 6.25 MG TABLET PO SCH ×2 (08:48→21:33)
[2020-10-12] MEDS: INSULIN REGULAR 100 UNIT/ML SUBCUT SCH ×4 (08:48→21:47)
[2020-10-12] MEDS: PANTOPRAZOLE 40 MG TABLET PO SCH (08:48)
[2020-10-12] MEDS: metFORMIN 500 MG TABLET PO SCH ×2 (08:48→21:33)
[2020-10-12] MEDS: TAMSULOSIN 0.4 MG CAPSULE PO SCH ×2 (08:49→21:32)
[2020-10-12] MEDS: oxyCODONE/ACETAMINOPHEN 5-325 MG TABLET PO PRN ×3 (08:49→21:34)
[2020-10-12] MEDS: hydroCHLOROthiazide 25 MG TABLET PO SCH (08:49)
[2020-10-12] MEDS: DOCUSATE SODIUM 100 MG CAPSULE PO SCH (08:49)
[2020-10-12] MEDS: ASPIRIN EC 325 MG TABLET PO SCH (08:49)
[2020-10-12] MEDS: glipiZIDE 10 MG TABLET PO SCH (08:49)
[2020-10-12] MEDS: LOSARTAN 25 MG TABLET PO SCH (08:50)
[2020-10-12] MEDS: CHLORHEXIDINE 0.12% ORAL RINSE 60 ML BOTTLE SWISH/SPIT SCH ×2 (08:50→21:34)
[2020-10-12] MEDS: SIMVASTATIN 20 MG TABLET PO SCH (21:32)
[2020-10-12] MEDS: GABAPENTIN 600 MG TABLET PO SCH (21:33)
[2020-10-13] MEDS: oxyCODONE/ACETAMINOPHEN 5-325 MG TABLET PO PRN (03:47)
[2020-10-13 08:38] VITALS: BP 111/70
[2020-10-13] MEDS: CHLORHEXIDINE 0.12% ORAL RINSE 60 ML BOTTLE SWISH/SPIT SCH (09:54)
[2020-10-13] MEDS: PHENAZOPYRIDINE 95 MG TABLET PO SCH (09:54)
[2020-10-13] MEDS: DOCUSATE SODIUM 100 MG CAPSULE PO SCH (09:54)
[2020-10-13] MEDS: carvediloL 6.25 MG TABLET PO SCH (09:55)
[2020-10-13] MEDS: glipiZIDE 10 MG TABLET PO SCH (09:55)
[2020-10-13] MEDS: LOSARTAN 25 MG TABLET PO SCH (09:55)
[2020-10-13] MEDS: TAMSULOSIN 0.4 MG CAPSULE PO SCH (09:55)
[2020-10-13] MEDS: ASPIRIN EC 325 MG TABLET PO SCH (09:55)
[2020-10-13] MEDS: PANTOPRAZOLE 40 MG TABLET PO SCH (09:55)
[2020-10-13] MEDS: hydroCHLOROthiazide 25 MG TABLET PO SCH (09:55)
[2020-10-13] MEDS: FERROUS SULFATE 325 MG TABLET PO SCH (09:55)
[2020-10-13] MEDS: metFORMIN 500 MG TABLET PO SCH (09:55)
[2020-10-13] MEDS: INSULIN REGULAR 100 UNIT/ML SUBCUT SCH (09:56)
== END 2020-10-13 12:18 | disposition home health service (06) | DRG 236 ==
LOC: EDBD → N.TELEN 08:52 → N.CVR 10-05 10:31 → N.TELES 10-06 09:59